=== PATIENT | male | born 1955 | race American Indian/Alaskan Native ===

== ENCOUNTER 2017-04-16 17:38 | Observation (INO) | payer SELFPAY ==
--- NOTE | 2017-04-16 18:22 | ED PDOC ---
Syncope/Near Syncope/Dizziness <Tamir Mccord - Last Filed: 04/16/17 19:27> Chief Complaint (Provider): Syncope History Per: Patient History/Exam Limitations: no limitations Onset/Duration Of Symptoms: Mins (prior to arrival) Current Symptoms Are (Timing): Gone Now Additional Complaint(s): Joselito Ward is a 61 year old male who presents to the emergency department via EMS for an evaluation status post syncopal episode associated with proceeding dizziness, loss of consciousness and possible shakiness at restaurant prior to arrival. Denied headache, chest pain, palpitation, weakness or paraesthesia. PMD: none provided <Boston Pardo F - Last Filed: 04/21/17 12:02> Time Seen by Provider: 04/16/17 17:46 Chief Complaint (Nursing): Syncope Past Medical History Vital Signs: Last Vital Signs Temp 97.7 F 04/16/17 17:43 Pulse 86 04/16/17 18:10 Resp 16 04/16/17 18:10 BP 114/59 L 04/16/17 18:10 Pulse Ox 99 04/16/17 19:24 <Tamir Mccord - Last Filed: 04/16/17 19:27> Reviewed: Historical Data, Nursing Documentation, Vital Signs Vital Signs: Last Vital Signs Temp 97.7 F 04/16/17 17:43 Pulse 18 L 04/16/17 17:43 Resp 84 H 04/16/17 17:43 BP 96/63 L 04/16/17 17:43 Pulse Ox 99 04/16/17 17:43 - Medical History PMH: No Chronic Diseases - Surgical History Surgical History: No Surg Hx - Family History Family History: States: Unknown Family Hx - Social History Current smoker - smoking cessation education provided: No Alcohol: Occasional Drugs: Denies <Boston Pardo F - Last Filed: 04/21/17 12:02> - Home Medications Home Medications: Ambulatory Orders Medication Instructions Recorded No Known Home Med 04/16/17 - Allergies Allergies/Adverse Reactions: Allergies Allergy/AdvReac Type Severity Reaction Status Date / Time No Known Allergies Allergy Verified 04/16/17 17:43 Review of Systems ROS Statement: Except As Marked, All Systems Reviewed And Found Negative Cardiovascular: Negative for: Chest Pain, Palpitations Neurological: Positive for: Dizziness (proceeding syncopal episode), Other ( loss of consciousness). Negative for: Weakness (or paraesthesia), Headache <Boston Pardo - Last Filed: 04/21/17 12:02> Physical Exam - Reviewed Nursing Documentation Reviewed: Yes Vital Signs Reviewed: Yes - Physical Exam Appears: Positive for: Well, Non-toxic, No Acute Distress Head Exam: Positive for: NORMOCEPHALIC (with superfical abrasion to occipital area). Negative for: ATRAUMATIC (palpable fractures), NORMAL INSPECTION Eye Exam: Positive for: Normal appearance, EOMI, PERRL. Negative for: Nystagmus Neck: Positive for: Normal, Painless ROM, Supple Cardiovascular/Chest: Positive for: Regular Rate, Rhythm. Negative for: Chest Non Tender Respiratory: Positive for: Normal Breath Sounds. Negative for: Crackles, Rales , Rhonchi, Wheezing, Respiratory Distress Gastrointestinal/Abdominal: Positive for: Normal Exam, Bowel Sounds, Soft. Negative for: Tenderness Extremity: Positive for: Normal ROM. 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 Negative for : Motor/Sensory Deficits, Aphasia <Boston Pardo - Last Filed: 04/21/17 12:02> - Laboratory Results Result Diagrams: 04/16/17 18:15 04/16/17 18:15 <SuriTamir - Last Filed: 04/16/17 19:27> - Laboratory Results Result Diagrams: 04/17/17 07:30 04/17/17 05:30 - ECG O2 Sat by Pulse Oximetry: 99 (RA) Pulse Ox Interpretation: Normal <Boston Pardo - Last Filed: 04/21/17 12:02> Medical Decision Making Medical Decision Making: Initial Impression: Syncope Initial Plan: * CT head without contrast * EKG * CMP * Troponin I * CBC * CXR Scribe Attestation: Documented by Ericka Boswell, acting as a scribe for Boston Pardo MD. Provider Scribe Attestation: All medical record entries made by the Scribe were at my direction and personally dictated by me. I have reviewed the chart and agree that the record accurately reflects my personal performance of the history, physical exam, medical decision making, and the department course for this patient. I have also personally directed, reviewed, and agree with the discharge instructions and disposition. <Boston Pardo - Last Filed: 04/21/17 12:02> Disposition <Tamir Mccord - Last Filed: 04/16/17 19:27> - Patient ED Disposition Is Patient to be Admitted: Transfer of Care - Disposition Disposition: Transfer of Care Disposition Time: 19:00 Patient Signed Over To: Tamir Mccord <Bostno Pardo - Last Filed: 04/21/17 12:02> - Clinical Impression Clinical Impression: Syncope - Disposition Condition: STABLE
[2017-04-16 18:28] LABS: BASO # 0.2 K/uL (0.0-0.2); BASO % 1.3 % (0.0-2.0); EOS # 0.1 K/uL (0.0-0.7); EOS % 0.9 % (0.0-4.0); HEMATOCRIT 41.5 % (35.0-51.0); LYMPH # 2.4 K/uL (1.0-4.3); MEAN CELL VOLUME 88.3 fl (80.0-94.0); MEAN CORPUSCULAR HEMOGLOBIN 29.6 pg (27.0-31.0); MEAN CORPUSCULAR HGB CONC 33.5 g/dL (33.0-37.0); MEAN PLATELET VOLUME 7.3 fl (7.2-11.7); MONO # 0.6 K/uL (0.0-0.8); MONO % 5.3 % (0.0-10.0); NEUT # 8.8 K/uL (1.8-7.0); NEUT % 72.5 % (50.0-75.0); RED CELL DISTRIBUTION WIDTH 14.4 % (11.5-14.5); WHITE BLOOD COUNT 12.1 K/uL (4.8-10.8)
[2017-04-16 18:35] LABS: ALB/GLOB RATIO 1.4 (1.0-2.1); BILIRUBIN,TOTAL 1.3 mg/dl (0.2-1.3); CALCIUM 9.5 mg/dL (8.4-10.2); TOTAL PROTEIN 7.8 G/DL (6.3-8.2)
[2017-04-16 18:39] LABS: POTASSIUM 4.5 MMOL/L (3.6-5.0)
[2017-04-16 18:45] LABS: TROPONIN I 0.027 ng/mL (0.00-0.120)
--- NOTE | 2017-04-16 19:24 | ED PDOC ---
- Laboratory Results Result Diagrams: 04/16/17 18:15 04/16/17 18:15 - ECG O2 Sat by Pulse Oximetry: 99 (RA) Medical Decision Making Medical Decision Making: Time: 1899 --Patient was endorsed from Dr. Boston Pardo. Pending CT results. 1944 Pt. informed of head CT and labs. Pt. states he is back to baseline. States this is his third syncopal episode but has never sought medical attention. Pt. informed of admission, Dr. Jain aware. Scribe Attestation: Documented by Ericka Boswell, acting as a scribe for Tamir Mccord MD. Provider Scribe Attestation: All medical record entries made by the Scribe were at my direction and personally dictated by me. I have reviewed the chart and agree that the record accurately reflects my personal performance of the history, physical exam, medical decision making, and the department course for this patient. I have also personally directed, reviewed, and agree with the discharge instructions and disposition. Disposition - Clinical Impression Clinical Impression: Syncope - POA Present On Arrival: None - Disposition Disposition: Hospitalized as Observation Patient Disposition Time: 19:30 Condition: STABLE Forms: [employer] ([place])
--- NOTE | 2017-04-16 19:30 | CT ---
EXAM: CT Head Without Intravenous Contrast EXAM DATE/TIME: 04/16/2017 5:56 PM CLINICAL HISTORY: 61 years old, male; Signs and symptoms; Other: Unconscious dizziness; Additional info: R/O bleed TECHNIQUE: Axial computed tomography images of the head/brain without intravenous contrast. All CT scans at this facility use one or more dose reduction techniques, viz.: automated exposure control; ma/kV adjustment per patient size (including targeted exams where dose is matched to indication; i.e. head); or iterative reconstruction technique. Coronal and sagittal reformatted images were created and reviewed. COMPARISON: There are no prior studies for comparison. FINDINGS: Brain: Ventricles are normal in size and configuration. There is no midline shift. There are no intra-axial or extra-axial mass lesions or areas of hemorrhage. There are no abnormal fluid collections. Reynolds-white differentiation is maintained. Ventricles: See above. Bones: Cranial vault is intact. Soft tissues: unremarkable Sinuses: There is no acute sinusitis. Ears and mastoids: Middle ears and mastoids are unremarkable Orbits: Orbital contents are unremarkable. IMPRESSION: No acute intracranial abnormality
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
[2017-04-17] MEDS: Sodium Chloride 0.9% 1,000 ML IV SCH ×2 (02:05→08:47)
[2017-04-17] MEDS ORDERED: Pneumococcal 23-Valent Vaccine IM ONE (04:00)
[2017-04-17 08:05] LABS: BASO % 0.2 % (0.0-2.0); EOS # 0.1 K/uL (0.0-0.7); EOS % 1.5 % (0.0-4.0); HEMATOCRIT 38.4 % (35.0-51.0); LYMPH # 3.1 K/uL (1.0-4.3); MEAN CELL VOLUME 88.5 fl (80.0-94.0); MEAN CORPUSCULAR HEMOGLOBIN 30.3 pg (27.0-31.0); MEAN CORPUSCULAR HGB CONC 34.2 g/dL (33.0-37.0); MEAN PLATELET VOLUME 7.6 fl (7.2-11.7); MONO # 0.7 K/uL (0.0-0.8); MONO % 7.8 % (0.0-10.0); NEUT # 4.7 K/uL (1.8-7.0); NEUT % 54.5 % (50.0-75.0); NRBC % 0.1 % (0.0-0.0); RED CELL DISTRIBUTION WIDTH 14.6 % (11.5-14.5); WHITE BLOOD COUNT 8.6 K/uL (4.8-10.8)
[2017-04-17 08:27] VITALS: RESP 18
[2017-04-17 08:42] LABS: BLOOD UREA NITROGEN 25 mg/dl (9-20); CARBON DIOXIDE 25 mmol/L (22-30); CHLORIDE 106 mmol/L (98-107); GFR AFRICAN-AMERICAN 58; GLUCOSE,RANDOM 91 mg/dL (75-110); POTASSIUM 3.8 MMOL/L (3.6-5.0); SODIUM 138 mmol/l (132-148)
--- NOTE | 2017-04-17 09:12 | RAD ---
HISTORY: syncope COMPARISON: No prior. TECHNIQUE: Chest PA and lateral FINDINGS: LUNGS: No active pulmonary disease. PLEURA: No significant pleural effusion identified. No pneumothorax apparent. CARDIOVASCULAR: No radiographic findings to suggest acute or significant cardiovascular disease. OSSEOUS STRUCTURES: No significant abnormalities. VISUALIZED UPPER ABDOMEN: Normal. OTHER FINDINGS: None. IMPRESSION: No active disease.
[2017-04-17 12:22] VITALS: BP 124/78; PULSE 72; TEMP 98.2; O2SAT 99
--- NOTE | 2017-04-17 18:28 | CP.PCM.DIS ---
Provider - Provider Date of Admission: 04/16/17 19:32 Attending physician: Theron Jain MD Time Spent in preparation of Discharge (in minutes): 25 Diagnosis - Discharge Diagnosis (1) Syncope Status: Acute Comment: no recurrence of loss of awareness. CT scan of head was negative for abnormal changes. serial Troponins were within normal limits. pt discharged in stable condition Hospital Course - Lab Results Lab Results: Most Recent Lab Values WBC 8.6 K/uL (4.8-10.8) 04/17/17 07:30 RBC 4.33 Mil/uL (4.40-5.90) L 04/17/17 07:30 Hgb 13.1 g/dL (12.0-18.0) 04/17/17 07:30 Hct 38.4 % (35.0-51.0) 04/17/17 07:30 MCV 88.5 fl (80.0-94.0) 04/17/17 07:30 MCH 30.3 pg (27.0-31.0) 04/17/17 07:30 MCHC 34.2 g/dL (33.0-37.0) 04/17/17 07:30 RDW 14.6 % (11.5-14.5) H 04/17/17 07:30 Plt Count 175 K/uL (130-400) 04/17/17 07:30 MPV 7.6 fl (7.2-11.7) 04/17/17 07:30 Neut % (Auto) 54.5 % (50.0-75.0) 04/17/17 07:30 Lymph % (Auto) 36.0 % (20.0-40.0) 04/17/17 07:30 [place] % (Auto) 7.8 % (0.0-10.0) 04/17/17 07:30 Eos % (Auto) 1.5 % (0.0-4.0) 04/17/17 07:30 Baso % (Auto) 0.2 % (0.0-2.0) 04/17/17 07:30 Neut # 4.7 K/uL (1.8-7.0) 04/17/17 07:30 Lymph # 3.1 K/uL (1.0-4.3) 04/17/17 07:30 [place] # 0.7 K/uL (0.0-0.8) 04/17/17 07:30 Eos # 0.1 K/uL (0.0-0.7) 04/17/17 07:30 Baso # 0.0 K/uL (0.0-0.2) 04/17/17 07:30 Sodium 138 mmol/l (132-148) 04/17/17 05:30 Potassium 3.8 MMOL/L (3.6-5.0) 04/17/17 05:30 Chloride 106 mmol/L (98-107) 04/17/17 05:30 Carbon Dioxide 25 mmol/L (22-30) 04/17/17 05:30 Anion Gap 11 (10-20) 04/17/17 05:30 BUN 25 mg/dl (9-20) H 04/17/17 05:30 Creatinine 1.5 mg/dL (0.8-1.5) 04/17/17 05:30 Est GFR ( Amer) 58 04/17/17 05:30 Est GFR (Non-Af Amer) 48 04/17/17 05:30 Random Glucose 91 mg/dL (75-110) 04/17/17 05:30 Calcium 9.0 mg/dL (8.4-10.2) 04/17/17 05:30 Total Bilirubin 1.3 mg/dl (0.2-1.3) 04/16/17 18:15 AST 37 U/L (17-59) 04/16/17 18:15 ALT 29 U/L (21-72) 04/16/17 18:15 Alkaline Phosphatase 66 U/L (38-126) 04/16/17 18:15 Troponin I < 0.0120 ng/mL (0.00-0.120) 04/17/17 12:19 Total Protein 7.8 G/DL (6.3-8.2) 04/16/17 18:15 Albumin 4.5 g/dL (3.5-5.0) 04/16/17 18:15 Globulin 3.3 gm/dL (2.2-3.9) 04/16/17 18:15 Albumin/Globulin Ratio 1.4 (1.0-2.1) 04/16/17 18:15 - Hospital Course Hospital Course: 61 yo male with no significant PMH placed on observation in telemetry because of sudden loss of awareness. CT scan of the head did not show any acute findings and serial Troponins did not reveal ischemic changes. There was no recurrence and patient was discharged in stable condition. Discharge Exam - Head Exam Head Exam: ATRAUMATIC - Eye Exam Eye Exam: Normal appearance - ENT Exam ENT Exam: Mucous Membranes Moist - Respiratory Exam Respiratory Exam: absent: Rales, Rhonchi, Wheezes - Cardiovascular Exam Cardiovascular Exam: REGULAR RHYTHM, +S1, +S2 - GI/Abdominal Exam GI & Abdominal Exam: Soft. absent: Tenderness - Rectal Exam Rectal Exam: Deferred - Neurological Exam Neurological exam: Alert, Oriented x3 - Psychiatric Exam Psychiatric exam: Normal Affect - Skin Skin Exam: Dry, Intact Discharge Plan - Follow Up Plan Condition: STABLE Disposition: HOME/ ROUTINE
--- NOTE | 2017-04-20 10:09 | CARD ---
APPROVED REPORT EKG Measurement Heart [id number] <Conclusion> Normal sinus rhythm Biatrial enlargement Nonspecific T wave abnormality Abnormal ECG
[2017-04-20 11:53] LABS: ACETONE None Detected; ETHANOL None Detected; METHANOL None Detected
== END 2017-04-17 13:45 | disposition home or self-care (01) ==
LOC: H.ER 17:38 → H.ERHOLD 19:32 → H.TEL 21:10
DX: R55 Syncope and collapse (principal); Z87.891 Personal history of nicotine dependence; R42 Dizziness and giddiness; Z23 Encounter for immunization
CPT/HCPCS: 36415; 70450; 71020; 80048; 80053; 82009; 83036; 84484; 84600; 85025; 90732; 99285; G0009; G0378; G0480; J7040